=== PATIENT | female | born 1995 | race Caucasian/White ===

== ENCOUNTER 2016-12-24 13:22 | Emergency (ER) | payer MEDICAID ==
[~2016-12-24] VITALS: Ht 162.6 cm; Wt 95.5 kg
[~2016-12-24 13:22] MED LIST: CEPHALEXIN500 M1 PO; CLINDAMYCIN300 MG PO; IBUPAIN-200200 MG PO; IBUPROFEN800 MG PO; MOTRIN 800800 MG/TAB PO; PHENERGAN W/CO120 M1 PO; PREDNISONE20 M1 PO; PRILOSEC 20MG20 MG PO; SKELAXIN400 MG PO; TAMIFLU75 MG PO; TYLENOL 500MG500 MG PO; ZOFRAN ODT8 MG PO
[2016-12-24 16:19] VITALS: BP 172/98
== END 2016-12-24 16:15 | disposition home or self-care (01) ==
LOC: ED 13:22
DX: F15.980 Other stimulant use, unspecified with stimulant-induced anxiety disorder (principal); F11.988 Opioid use, unspecified with other opioid-induced disorder; R11.0 Nausea

== ENCOUNTER 2017-03-18 23:04 | Emergency (ER) | payer MEDICAID ==
[~2017-03-18] VITALS: Ht 162.6 cm; Wt 144.1 kg
[2017-03-18] MEDS ORDERED: PRENATAL 19 TA1 EACH PO (23:14)
[2017-03-18] MEDS ORDERED: PROMETHAZINE12.5 M5 PO (23:16)
[2017-03-19 02:44] VITALS: BP 124/61
== END 2017-03-19 02:44 | disposition home or self-care (01) ==
LOC: ED 23:04
DX: O21.9 Vomiting of pregnancy, unspecified (principal); O99.89 Other specified diseases and conditions complicating pregnancy, childbirth and the puerperium; R19.7 Diarrhea, unspecified; O99.331 Smoking (tobacco) complicating pregnancy, first trimester; F17.200 Nicotine dependence, unspecified, uncomplicated; Z3A.08 8 weeks gestation of pregnancy; O99.351 Diseases of the nervous system complicating pregnancy, first trimester; G93.2 Benign intracranial hypertension; H47.10 Unspecified papilledema; O99.341 Other mental disorders complicating pregnancy, first trimester; F32.9 Major depressive disorder, single episode, unspecified; F41.9 Anxiety disorder, unspecified; F90.9 Attention-deficit hyperactivity disorder, unspecified type
CPT/HCPCS: A4353; J2405; J7030

== ENCOUNTER 2017-05-12 13:40 | Emergency (ER) | payer MEDICAID ==
[~2017-05-12] VITALS: Ht 162.6 cm; Wt 142.7 kg
[~2017-05-12 13:40] MED LIST changes: +PRENATAL 19 TA1 EACH PO; +PROMETHAZINE12.5 M5 PO
[2017-05-12] MEDS ORDERED: HUMULIN N KW100 U/ML SQ (13:48)
[2017-05-12] MEDS ORDERED: ZOFRAN4 M2 PO (13:49)
[2017-05-12 14:51] LABS: EOS # 0.2 (0.04-0.40); EOS % 1.9 % (1.0-5.0); HEMOGLOBIN 11.5 g/dL (12.5-16.0); MEAN CELL VOLUME 83 fl (78-100); MEAN CORPUSCULAR HEMOGLOBIN 27 pg (27-31); MEAN CORPUSCULAR HGB CONC 33 g/dL (33-37); MEAN PLATELET VOLUME 10.2 fl (7.4-10.4); MONO # 0.8 (0.20-0.80); NEU # 9.7 (1.40-6.50); PLATELET COUNT 329 K/mm3 (130-400); RED BLOOD COUNT 4.21 M/mm3 (4.10-5.30); RED CELL DISTRIBUTION WIDTH 13.8 % (11.5-14.5); WHITE BLOOD COUNT 12.7 K/mm3 (4.8-10.8)
[2017-05-12 15:01] LABS: ALBUMIN 3.6 g/dL (3.5-5.0); BUN/CREATININE RATIO 8.9 (6.0-26.0); CALCIUM 9.1 mg/dL (8.4-10.2); POTASSIUM 3.4 mmol/L (3.6-5.0); TOTAL BILIRUBIN 0.6 mg/dL (0.2-1.3); TOTAL PROTEIN 6.5 g/dL (6.3-8.2)
[2017-05-12 15:02] LABS: URINE APPEARANCE CLOUDY; URINE BILIRUBIN NEGATIVE (NEGATIVE); URINE BLOOD NEGATIVE (NEGATIVE); URINE COLOR AMBER; URINE GLUCOSE NEGATIVE (NEGATIVE); URINE KETONE 3+ (NEGATIVE); URINE LEUKOCYTE ESTERASE NEGATIVE (NEGATIVE); URINE MUCUS PRESENT (NOT PRESENT); URINE NITRATE NEGATIVE (NEGATIVE); URINE PROTEIN(semi-quant) 1+ mg/dL (NEGATIVE); URINE UROBILINOGEN NORMAL (NORMAL)
[2017-05-12] MEDS ORDERED: ACETAZOLAMIDE125 M1 (15:44)
[2017-05-12 17:10] VITALS: BP 141/73
== END 2017-05-12 16:30 | disposition home or self-care (01) ==
LOC: ED 13:40
PROVIDERS: Physician Assistant
DX: O99.282 Endocrine, nutritional and metabolic diseases complicating pregnancy, second trimester (principal); Z3A.16 16 weeks gestation of pregnancy; E86.0 Dehydration; O24.414 Gestational diabetes mellitus in pregnancy, insulin controlled; O10.912 Unspecified pre-existing hypertension complicating pregnancy, second trimester; Z88.5 Allergy status to narcotic agent; Z88.0 Allergy status to penicillin; O99.332 Smoking (tobacco) complicating pregnancy, second trimester; F17.210 Nicotine dependence, cigarettes, uncomplicated; O99.89 Other specified diseases and conditions complicating pregnancy, childbirth and the puerperium; N89.8 Other specified noninflammatory disorders of vagina; O21.9 Vomiting of pregnancy, unspecified; R10.2 Pelvic and perineal pain
CPT/HCPCS: J7030

== ENCOUNTER 2017-08-02 00:32 | Emergency (ER) | payer MEDICAID ==
[~2017-08-02] VITALS: Ht 162.6 cm; Wt 141.8 kg
[~2017-08-02 00:32] MED LIST changes: +ACETAZOLAMIDE125 M1; +HUMULIN N KW100 U/ML SQ; +ZOFRAN4 M2 PO
[2017-08-02] MEDS ORDERED: ZITHROMAX 250M250 MG PO (01:08)
[2017-08-02 01:16] VITALS: BP 160/84
== END 2017-08-02 01:16 | disposition home or self-care (01) ==
LOC: ED 00:32
DX: O99.519 Diseases of the respiratory system complicating pregnancy, unspecified trimester (principal); J01.00 Acute maxillary sinusitis, unspecified; J01.10 Acute frontal sinusitis, unspecified; O24.414 Gestational diabetes mellitus in pregnancy, insulin controlled; O99.330 Smoking (tobacco) complicating pregnancy, unspecified trimester; F17.200 Nicotine dependence, unspecified, uncomplicated; Z3A.00 Weeks of gestation of pregnancy not specified; Z88.0 Allergy status to penicillin

== ENCOUNTER 2017-10-17 19:44 | Emergency (ER) | payer MEDICAID ==
[~2017-10-17] VITALS: Ht 162.6 cm; Wt 140.5 kg
[~2017-10-17 19:44] MED LIST changes: +ZITHROMAX 250M250 MG PO
[2017-10-17] MEDS ORDERED: EXCEDRIN EXTRA1 EACH PO (19:55)
[2017-10-17] MEDS ORDERED: NORCO 325 MG-51 TA1 PO (19:56)
[2017-10-17 20:56] VITALS: BP 147/74
== END 2017-10-17 20:46 | disposition home or self-care (01) ==
LOC: ED 19:44
DX: O72.2 Delayed and secondary postpartum hemorrhage (principal); F17.200 Nicotine dependence, unspecified, uncomplicated
CPT/HCPCS: 13312

== ENCOUNTER 2018-04-17 16:26 | Emergency (ER) | payer OTHER, MEDICAID ==
[~2018-04-17] VITALS: Wt 140.8 kg
[~2018-04-17 16:26] MED LIST changes: +EXCEDRIN EXTRA1 EACH PO; +NORCO 325 MG-51 TA1 PO; +ULTRAM50 M1 PO; +VIBRAMYCIN HYC100 MG PO
[2018-04-17 17:06] LABS: EOS # 0.3 (0.04-0.40); EOS % 2.2 % (1.0-5.0); HEMATOCRIT 40.8 % (37.0-47.0); HEMOGLOBIN 12.9 g/dL (12.5-16.0); LYMPH# 2.6 (1.50-4.00); MEAN CELL VOLUME 82 fl (78-100); MEAN CORPUSCULAR HEMOGLOBIN 26 pg (27-31); MEAN CORPUSCULAR HGB CONC 32 g/dL (33-37); MEAN PLATELET VOLUME 10.6 fl (7.4-10.4); MONO # 0.7 (0.20-0.80); PLATELET COUNT 389 K/mm3 (130-400); RED BLOOD COUNT 4.96 M/mm3 (4.10-5.30); RED CELL DISTRIBUTION WIDTH 14.8 % (11.5-14.5); WHITE BLOOD COUNT 13.4 K/mm3 (4.8-10.8)
[2018-04-17 17:07] LABS: NEU # 9.8 (1.40-6.50)
[2018-04-17] MEDS ORDERED: CYCLOBENZAPRINE10 M1 PO (18:42)
[2018-04-17 18:58] VITALS: BP 131/83
== END 2018-04-17 18:58 | disposition home or self-care (01) ==
LOC: ED 16:26
PROVIDERS: Nurse Practitioner Primary Care
DX: M54.2 Cervicalgia (principal); R07.89 Other chest pain; V43.52XA Car driver injured in collision with other type car in traffic accident, initial encounter; Y92.410 Unspecified street and highway as the place of occurrence of the external cause; F17.200 Nicotine dependence, unspecified, uncomplicated
CPT/HCPCS: J2270; Q9967

== ENCOUNTER 2018-09-06 22:44 | Emergency (ER) | payer MEDICAID ==
[~2018-09-06 22:44] MED LIST changes: +CYCLOBENZAPRINE10 M1 PO
[2018-09-06 23:42] LABS: EOS # 0.2 (0.04-0.40); EOS % 2.3 % (1.0-5.0); HEMATOCRIT 36.8 % (37.0-47.0); HEMOGLOBIN 11.6 g/dL (12.5-16.0); LYMPH# 1.8 (1.50-4.00); MEAN CELL VOLUME 86 fl (78-100); MEAN CORPUSCULAR HEMOGLOBIN 27 pg (27-31); MEAN CORPUSCULAR HGB CONC 32 g/dL (33-37); MEAN PLATELET VOLUME 10.4 fl (7.4-10.4); MONO # 0.7 (0.20-0.80); PLATELET COUNT 316 K/mm3 (130-400); RED BLOOD COUNT 4.29 M/mm3 (4.10-5.30); RED CELL DISTRIBUTION WIDTH 13.7 % (11.5-14.5); WHITE BLOOD COUNT 9.8 K/mm3 (4.8-10.8)
[2018-09-06 23:53] LABS: ALBUMIN 3.5 g/dL (3.5-5.0); CALCIUM 8.3 mg/dL (8.4-10.2); POTASSIUM 3.9 mmol/L (3.6-5.0); TOTAL BILIRUBIN 0.3 mg/dL (0.2-1.3); TOTAL PROTEIN 6.6 g/dL (6.3-8.2)
[2018-09-07 00:11] LABS: PH-URINE 5.5 (5.0 - 8.0); URINE APPEARANCE HAZY; URINE BILIRUBIN NEGATIVE (NEGATIVE); URINE BLOOD NEGATIVE (NEGATIVE); URINE COLOR YELLOW; URINE GLUCOSE NEGATIVE (NEGATIVE); URINE KETONE NEGATIVE (NEGATIVE); URINE LEUKOCYTE ESTERASE NEGATIVE (NEGATIVE); URINE NITRATE NEGATIVE (NEGATIVE); URINE PROTEIN(semi-quant) NEGATIVE (NEGATIVE); URINE UROBILINOGEN 1 mg/dL (NORMAL); URINE WBC 0-1 /hpf (0-3)
[2018-09-07] MEDS ORDERED: PRILOSEC OTC20 MG PO (00:43)
[2018-09-07] MEDS ORDERED: CARAFATE 1GM1 G PO (00:43)
[2018-09-07 00:54] VITALS: BP 133/64
== END 2018-09-07 00:54 | disposition home or self-care (01) ==
LOC: ED 22:44
PROVIDERS: Physician Assistant
DX: K21.9 Gastro-esophageal reflux disease without esophagitis (principal); F17.210 Nicotine dependence, cigarettes, uncomplicated; Z88.0 Allergy status to penicillin; Z88.2 Allergy status to sulfonamides; Z88.1 Allergy status to other antibiotic agents; Z90.89 Acquired absence of other organs